=== PATIENT | female | born 1995 | race Caucasian/White ===

== ENCOUNTER 2019-11-01 14:54 | Emergency (ER) | payer OTHER, SELFPAY ==
[2019-11-01 15:03] VITALS: BP 111/73; PULSE 95; RESP 14; TEMP 37.9; O2SAT 98
--- NOTE | 2019-11-01 15:13 | ED.URI ---
HPI - URI/Sore Throat General Chief Complaint: Upper Respiratory Infection Stated Complaint: cough/fever/runny nose/congestion Time Seen by Provider: 11/01/19 15:13 Source: patient Mode of arrival: ambulatory Limitations: no limitations History of Present Illness HPI Narrative: Josh Muller is a 24 yo female with no PMH who started with fever last night- saw pcp this AM - strep negative, did not have flu swab to test pt. Pt's temp 100-101.2. 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 Related Data Allergies Allergy/AdvReac Type Severity Reaction Status Date / Time No Known Allergies Allergy Verified 11/01/19 15:10 Review of Systems Review of Systems: Narrative: CONSTITUTIONAL: Has fever, chills, sweats. EYES: Denies visual changes, redness, discharge. ENT: Denies rhinorrhea, has congestion, has sore throat, otalgia. CARDIOVASCULAR: Denies chest pain, palpitations, edema. RESPIRATORY: Denies dyspnea, wheezing, mild cough GASTROINTESTINAL: Denies abdominal pain, nausea, vomiting, diarrhea. GENITOURINARY: Denies dysuria, hematuria, abnormal discharge SKIN: Denies rash or itching. NEUROLOGIC: Denies numbness, or focal weakness. PSYCHIATRIC: Denies anxiety or depression. [facility] Family History Family History Other No active medical problems Social History Social History (Updated 11/01/19 @ 15:25 by Lori Pineda CNP) Smoking status: Never smoker Alcohol intake: current Comments At time of signature, I agree with nursing past medical, surgical, social and family history. There is no relevant family history pertinent to the presenting complaint. Exam Narrative: Exam Narrative: GENERAL: This is a well-nourished, well-developed patient, in mild distress. HEAD: normocephalic, atraumatic. EYES: Sclera clear/white. Vision is grossly intact. EARS: External ears normal, auditory canals clear and without drainage, TMs normal without perforation. Hearing grossly intact. NOSE: External nose normal with no nasal discharge, nares with redness, mild rhinorrhea. THROAT: Mucous membranes moist, posterior pharynx erythema NECK: Neck supple, tender without lymphadenopathy, CARDIOVASCULAR: Regular rate and rhythm without murmurs, gallops, or rubs. RESPIRATORY: Clear to auscultation. Breath sounds equal bilaterally. No wheezes, rales, or rhonchi. GASTROINTESTINAL: Abdomen soft, non-tender, SKIN: warm, intact with no suspicious lesions or rash, good texture and turgor. NEURO: awake, alert, and oriented to person, place and time. There were no obvious focal neurologic abnormalities. Steady gait EXTREMITIES: Normal range of motion. No edema. BACK: Nontender without deformity or crepitance. Course Course Emergency Course: flu negative strep negative Started on empiric tamiflu, discussed fever control, hydration, days off work. Pt was denied screening for [facility] as does not meet screening criteria.Pt should quarantine until fever free x 24 hours Vital Signs Vital signs: Vital Signs Temperature 100.2 F H 11/01/19 15:03 Pulse Rate 95 11/01/19 15:03 Respiratory Rate 14 11/01/19 15:03 Blood Pressure 111/73 11/01/19 15:03 Pulse Oximetry 98 11/01/19 15:03 Temperature 100.2 F H 11/01/19 15:03 Pulse Rate 95 11/01/19 15:03 Respiratory Rate 14 11/01/19 15:03 Blood Pressure 111/73 11/01/19 15:03 Pulse Oximetry 98 11/01/19 15:03 MDM - URI/Sore Throat Differential Diagnosis Differential diagnosis: Likely upper respiratory infection, sinusitis, influenza, pharyngitis and other Lab Data Labs: Influenza A Screen Negative Reference Range: Negative Influenza B Screen Negative Reference Range: Negative Strep Screen Presumptive Negative *(Reference Range: Negative)* Discharge Plan Discharge Clinical Impression: Pharyngitis Qualifiers: Pharyngitis/tonsillitis etiology: unspe
== END 2019-11-01 15:52 | disposition home or self-care (01) ==
PROVIDERS: Emergency Provider Nurse Practitioner
DX: J02.9 Acute pharyngitis, unspecified (principal); J06.9 Acute upper respiratory infection, unspecified
CPT/HCPCS: 87081; 87804; 87880; 99213; G0463

== ENCOUNTER 2020-08-11 14:46 | Emergency (ER) | payer OTHER, SELFPAY ==
[2020-08-11 15:00] VITALS: BP 105/60; PULSE 90; RESP 18; TEMP 36.8; O2SAT 98
--- NOTE | 2020-08-11 15:20 | ED.GENADULT ---
HPI - General Adult General Chief complaint: Urogenital-Female Stated complaint: Lower Back Pain Time Seen by Provider: 08/11/20 15:21 Source: patient Mode of arrival: ambulatory Limitations: no limitations History of Present Illness HPI narrative: 24-year-old female patient presents to the [facility] with complaints of low back pain that wraps around to the right hip and down the leg. Patient states that the pain hurts worse when first standing in the morning as well as when she is laying on her back or laying on her right side. Patient states she has tried taking some Tylenol for the pain that has not helped. Patient is currently Covid positive and has been on quarantine now for about a week. Patient denies any urinary symptoms such as urgency, frequency or pain with urination. Denies any fevers, body aches or chills. Related Data Allergies Allergy/AdvReac Type Severity Reaction Status Date / Time No Known Allergies Allergy Verified 08/11/20 15:23 Review of Systems Review of Systems: Narrative: CONSTITUTIONAL: Denies fever, chills, or sweats. EYES: Denies visual changes, redness, or discharge. ENT: Denies rhinorrhea, congestion, sore throat, or otalgia. CARDIOVASCULAR: Denies chest pain, palpitations, or edema. RESPIRATORY: Denies cough or dyspnea. GASTROINTESTINAL: Denies abdominal pain, nausea, vomiting, or diarrhea. GENITOURINARY: Denies dysuria or hematuria. SKIN: Denies rash or itching. MUSCULOSKELETAL: Positive low back pain, denies joint pain, or myalgia. NEUROLOGIC: Denies headache, numbness, or weakness. PSYCHIATRIC: Denies anxiety or depression. PMFSH Family History Family History Other No active medical problems Social History Social History Smoking status: Never smoker Alcohol intake: current Comments At the time of my signature I agree with nursing past medical history, surgical, social, and family history. There is no relevant family history pertinent to the presenting complaint. Exam Narrative: Exam Narrative: GENERAL: Well-appearing, well-nourished, and in no acute distress. HEAD: Normocephalic, atraumatic. EYES: PERRLA and EOMI. ENT: Nares clear, no rhinorrhea or epistaxis. Mucous membranes moist. NECK: Supple. No lymphadenopathy CHEST: Clear to auscultation. No respiratory distress. HEART: Regular rate and rhythm. No murmur heard. Normal peripheral pulses. ABDOMEN: Soft, nontender, nondistended, normal active bowel sounds. EXTREMITIES: Normal range of motion. No edema. BACK: Patient is able to ambulated without assistance. Pt is seated on the stretcher in no obvouis distress. No surface trauma noted. No muscle tenderness to Palpation. Patient does have tenderness to palpation of the middle of the right buttocks that radiates down around the hip down the leg. No obvious spasm or mass. No step-offs or deformity noted to the cervical, thoracic or lumbar spine to firm Palpation at the midline. No CVA tenderness to percussion. No saddle anesthesia. ROM: able to stand erect. Normal flexion, extension, Lateral bending and rotation without limitation or complaint of pain. SKIN: Warm, dry, no rash. NEURO: No focal deficits. Alert and oriented x3. Course Vital Signs Vital signs: Vital Signs Temperature 36.8 C 08/11/20 15:00 Pulse Rate 90 08/11/20 15:00 Respiratory Rate 18 08/11/20 15:00 Blood Pressure 105/60 08/11/20 15:00 Pulse Oximetry 98 08/11/20 15:00 Temperature 36.8 C 08/11/20 15:00 Pulse Rate 90 08/11/20 15:00 Respiratory Rate 18 08/11/20 15:00 Blood Pressure 105/60 08/11/20 15:00 Pulse Oximetry 98 08/11/20 15:00 Vital signs reviewed. Medical Decision Making Differential Diagnosis Differential Diagnosis: Differential diagnosis: Acute musculoskeletal injury or exacerbation, neurological emergency, acute coronary syndrome, kidney stones, epidura
== END 2020-08-11 15:30 | disposition home or self-care (01) ==
PROVIDERS: Emergency Provider Nurse Practitioner Family; PCP Emergency Medicine
DX: M54.41 Lumbago with sciatica, right side (principal)
CPT/HCPCS: 81003; 81025; 87086; 87088; 99213; G0463

== ENCOUNTER 2020-11-03 09:53 | Outpatient (CLI) | payer OTHER, SELFPAY ==
--- NOTE | ~2020-11-03 | US_ITS ---
EXAMINATION: US soft tissue head and neck EXAM DATE: 11/03/2020 10:16 INDICATION: Left posterior neck mass. Nodule. TECHNIQUE: Multiple grayscale and Doppler images of the neck soft tissue posterior to the ear area of concern were obtained (by a technologist who performed the scan) and subsequently reviewed. There i s no prior study for comparison. FINDINGS: There is a solid hypoechoic mass demonstrating vascularity measuring 1.0 x 0.9 x 0.7 cm. Imaging feat ures are nonspecific, but if lymph node it is more round than typical, and without expected fatty hil um, indicating it could be pathological. IMPRESSION: Nonspecific hypoechoic mass posterior to left ear. Could be benign or malignant. If ther e is evidence of cervical lymphadenopathy, recommended neck CT with contrast. Otherwise consider ultr asound-guided biopsy. Reviewed, dictated and finalized at location [facility]. IMPRESSION: Nonspecific hypoechoic mass posterior to left ear. Could be benign or malignant. If there is evidence of cervical lymphadenopathy, recommended ne ck CT with contrast. Otherwise consider ultrasound-guided biopsy.
== END 2020-11-03 09:54 | disposition home or self-care (01) ==
LOC: ANHIMG 09:58
PROVIDERS: PCP Emergency Medicine; Visit Provider Emergency Medicine
DX: R22.1 Localized swelling, mass and lump, neck (principal)
CPT/HCPCS: 76536

== ENCOUNTER → 2020-12-12 06:44 | Outpatient (CLI) | payer OTHER, SELFPAY ==
[2020-12-12 19:16] LABS: SARS-CoV-2 RNA PCR Negative
== END ==
PROVIDERS: PCP Emergency Medicine; Visit Provider Surgery
DX: Z01.812 Encounter for preprocedural laboratory examination (principal); Z20.822 Contact with and (suspected) exposure to COVID-19
CPT/HCPCS: C9803; U0003; U0005

== ENCOUNTER 2020-12-16 01:43 | Day surgery (SDC) | payer OTHER, SELFPAY ==
[2020-12-08 15:23] VITALS: BMI 32.1
--- NOTE | 2020-12-16 10:14 | WPDANESEPPF ---
Anes - Initial Pre Proc Eval Procedure: Operation Date: 12/16/20 13:30 Proposed Procedures p Excisional Biopsy Left Posterior Neck Mass - Elvia Bermudez MD Date/Time: 12/16/20 10:14 Surgeon: Elvia Bermudez MD Pre Op Diagnosis: posterior neck mass Patient Data Age: 25 Gender: F Height: 1.63 m Weight: 85 kg Allergies Allergy/AdvReac Type Severity Reaction Status Date / Time No Known Allergies Allergy Verified 12/08/20 15:22 Home Medications Medication Instructions Recorded Confirmed Type copper 380 square mm intrauterine 1 device INTRAUTERINE ONCE 12/07/20 12/08/20 History device nystatin 1 applic TOPICAL BID 12/08/20 12/08/20 History Patient hx anesthesia problems: none Family hx anesthesia problems: none PMFSH Surgical History Surgical History (Updated 12/15/20 @ 13:30 by Raudel Edgar DO) History of laparoscopic appendectomy History of tonsillectomy and adenoidectomy Hx laparoscopic cholecystectomy Family History Family History Father No problems noted. Mother MVA (motor vehicle accident) Grandparent Lung cancer Cervical cancer Other No active medical problems Social History Social History Smoking status: Never smoker Second hand tobacco smoke exposure: No Alcohol intake: current Alcohol use details: 2-3/MONTH Substance use: current Substance use type: marijuana Other substance usage details: SMOKE Last use: 12/07/20 Living arrangements: with family Additional occupation/education comments: [employer] Gender identity (if verbalized by the patient): Female Spiritual care concerns: No Anes - Eval Final PreProcedure Day of Procedure 12/16/20 10:14 Patient weight: obese Heart: regular rate and rhythm Lungs: clear to auscultation and normal air movement Airway: Mallampati scale class II Neurological: alert and oriented Last oral intake: >/= 8 hours ASA classification: II Emergent: no Anesthetic plan: proceed Anesthesia type and monitoring: general GIVS and standard monitoring Informed Consent: The patient's anesthetic plan and its attendant risks and benefits were discussed with the patient/family/POA. Questions were solicited and answers provided to the satisfaction of the patient/family/POA.
[2020-12-16] MEDS: LACTATED RINGERS 1,000 ML 30 ML IV CONT (12:00)
[2020-12-16 12:08] VITALS: BP 112/70; PULSE 69; RESP 18; TEMP 36.3; O2SAT 100
--- NOTE | 2020-12-16 13:31 | WPDHPUPDATE1 ---
History and Physical Update Update Date/Time: 12/16/20 13:31 History and Physical has been reviewed, including an updated exam of the patient. There are NO changes in the patient's condition. Risks, benefits, and alternatives have been discussed and questions answered. Patient agrees to proceed with procedure.
[2020-12-16] MEDS: ceFAZolin 2 GM/D5W 50 ML 2 GM/50 ML BAG IVPB (13:37)
[2020-12-16] MEDS: BUPIVACAINE/EPINEPHRINE 0.5% 30 ML VIAL INFILTRATE (14:02)
--- NOTE | 2020-12-16 14:35 | PM.PROC ---
Procedure Note - Detailed Date of procedure: 12/16/20 Pre-op diagnosis: posterior neck mass Post-op diagnosis: same Procedure performed: excisional biopsy left posterior neck mass Description of procedure: The patient was taken to the operating room placed in the lateral position. After adequate induction of mac anesthesia, the patient was prepped and draped normal sterile fashion. A time-out was then done to verify the patient's identity, as well as procedure being performed. I then localized the area in and around this mass located at the hairline of the left posterior neck. I then made an incision over the mass. Incision was taken down through the dermis into the subcutaneous tissue. The mass was noted to be in the subcutaneous tissue and posteriorly adherent to the underlying muscle. Using very careful dissection both sharply and bluntly I was able to excise this mass in full. 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 There was some other pieces that looked to be lipoma and these were removed as well. Once the cavity was completely excised and measured approximately 3 x 2 cm. I then copiously irrigated out the cavity and hemostasis was noted. I then closed the subcutaneous tissue with 3 0 Vicryl suture. The skin was closed with 4 O Monocryl subcuticular suture. Dermabond was then placed in the wound. The patient tolerated the procedure well and was alert and awake in the operating room postoperative. She will be transferred to the recovery room in stable condition. Anesthesia: MAC and local Surgeon: Elvia Bermudez MD Estimated blood loss (mL): 10 Drains: No Packing: No Pathology: yes Complications: No immediate complications Condition: stable Disposition: PACU Findings: Left posterior neck mass
[2020-12-16 14:37] VITALS: BP 108/61; PULSE 96; RESP 14; O2SAT 99
[2020-12-16 14:55] VITALS: BP 113/73; PULSE 85; RESP 14; O2SAT 99
[2020-12-16] MEDS: ONDANSETRON INJ 4 MG/2 ML VIAL IV PUSH (15:07)
[2020-12-16 15:25] VITALS: BP 118/66; PULSE 71; RESP 16
--- NOTE | 2020-12-16 15:32 | SUR.PHASEII ---
1532- Notified Dr. Edgar patient complaining of headache and requesting orders for Tylenol at this time. Obtained orders from Dr. Edgar for 1,000MG PO Tylenol once.
[2020-12-16] MEDS: ACETAMINOPHEN 500 MG TABLET 1000 MG PO (15:37)
[2020-12-16 15:45] VITALS: BP 120/59; PULSE 84; RESP 16
[2020-12-16 15:55] VITALS: BP 116/56; PULSE 76; RESP 16
== END 2020-12-16 16:03 | disposition home or self-care (01) ==
PROVIDERS: PCP Emergency Medicine; Visit Provider Surgery
PROC: (CPT 21552; principal; 2020-12-16 13:30)
DX: R22.1 Localized swelling, mass and lump, neck (principal); F12.90 Cannabis use, unspecified, uncomplicated; E66.9 Obesity, unspecified; Z68.31 Body mass index [BMI] 31.0-31.9, adult
CPT/HCPCS: 21552; 88304; A9270; J0690; J2250; J2405; J2704; J3010; J7120

== ENCOUNTER 2022-07-06 08:32 | Emergency (ER) | payer OTHER, SELFPAY ==
[2022-07-06 08:38] VITALS: BP 150/70; PULSE 117; RESP 18; TEMP 36.9; O2SAT 98
--- NOTE | 2022-07-06 09:43 | ED.URI ---
HPI - URI/Sore Throat General Chief Complaint: Upper Respiratory Infection Stated Complaint: Cough/Fever Time Seen by Provider: 07/06/22 09:14 Source: patient, RN notes reviewed and old records reviewed Mode of arrival: ambulatory Limitations: no limitations History of Present Illness HPI Narrative: 36-year-old female who presents to [facility] with complaints of bilateral ear pain cough fevers headache for the past 3-4 days mother states she has been taking Tylenol and ibuprofen and also did take some DayQuil for her symptoms. Mother states she did take home COVID test which was negative, has not been vaccinated for COVID or has had flu shot. Mother reports fever 101.8F yesterday MD elicited complaint: fever, cough, rhinorrhea, nasal congestion and other (Ear pain) Pertinent past history: other (Tonsillectomy) Onset (ago): day(s) (4) Treatments prior to arrival: acetaminophen, ibuprofen and other (DayQuil) Related Data Allergies Allergy/AdvReac Type Severity Reaction Status Date / Time No Known Allergies Allergy Verified 12/30/20 09:07 Review of Systems Review of Systems: CONSTITUTIONAL: Reports malaise, chills, sweats, or fever. EYES: Denies visual changes, redness, or discharge. ENT: Reports rhinorrhea, congestion, sinus pain, otalgia no sore throat. CARDIOVASCULAR: Denies chest pain, palpitations, or edema. RESPIRATORY: Reports cough.? Denies dyspnea. GASTROINTESTINAL: Denies abdominal pain, nausea, vomiting, diarrhea SKIN: Denies rash or itching. MUSCULOSKELETAL: Denies myalgia. NEUROLOGIC: Reports headache. All systems reviewed & are unremarkable except as noted in HPI and below PMFSH Surgical History Surgical History H/O excision of mass 12/16/20 excisional biopsy left posterior neck mass History of laparoscopic appendectomy History of tonsillectomy and adenoidectomy Hx laparoscopic cholecystectomy Family History Family History Father No problems noted. Mother MVA (motor vehicle accident) Grandparent Lung cancer Cervical cancer Other No active medical problems Social History Social History (Updated 07/06/22 @ 09:47 by Charley Macario NP) Smoking status: Never smoker Second hand tobacco smoke exposure: No Alcohol intake: current Alcohol use details: 2-3/MONTH Substance use: former Substance use type: marijuana Other substance usage details: SMOKE Last use: 12/07/20 Living arrangements: with family Additional occupation/education comments: [employer] Gender identity (if verbalized by the patient): Female Sexual Orientation (if Verbalized by the Patient): Straight or Heterosexual Spiritual care concerns: No Comments At time of signature, agree with nursing past medical, surgical, social and family history. There is no relevant family history pertinent to the presenting complaint Exam Narrative: GENERAL: Well-appearing, well-nourished, and in no acute distress. HEAD: Normocephalic EYES: PERRLA, conjunctivae clear ENT: Nares clear, turbinates edematous and erythematous, clear discharge. Mucous membranes moist. TM pearly freeman with dull light reflex bilaterally; no tragal tenderness. Oropharynx erythematous without lesions. Tonsils absent and without exudate, no drooling, no hoarseness, no trismus, uvula midline. Postnasal drainage NECK: Supple. No lymphadenopathy CHEST: Clear to auscultation, breath sounds equal. No wheezing, rhonchi, rales, or stridor. No respiratory distress, speaks in full sentences. Cough SaO2 98% on room air HEART: Regular rate and rhythm. No murmur heard. SKIN: Warm, dry, no rash. NEURO: Alert and oriented x3. PSYCH: Normal mood and affect Course Course Emergency Course: Patient is aware of diagnosis, understands and agrees to treatment plan.? Anticipatory guidance given.? Patient agrees to
== END 2022-07-06 10:07 | disposition home or self-care (01) ==
PROVIDERS: Emergency Provider Registered Nurse
DX: J06.9 Acute upper respiratory infection, unspecified (principal)
CPT/HCPCS: 99213; G0463

== ENCOUNTER 2023-07-27 08:11 | Outpatient (CLI) | payer OTHER, SELFPAY ==
--- NOTE | ~2023-07-27 | US_ITS ---
Limited Abdominal Sonogram: Real-time sonographic imaging of the right upper quadrant was performed. Clinical History: Abnormal liver enzymes Findings: The liver appears mildly heterogeneous, with no evidence of mass lesion or bile duct dilat ation. Main portal vein demonstrates normal direction of flow. The gallbladder is minimally distended , without definite gallstone or gallbladder wall thickening. The common bile duct measures 2 mm. The visualized pancreas, aorta, and IVC are unremarkable. Impression: Heterogeneous hepatic echotexture could reflect chronic liver disease or diffuse fatty infiltration. Correlate clinically. Reviewed, dictated and finalized at [facility]. US HAND Impression: Heterogeneous hepatic echotexture could reflect chronic liver disease or diffus e fatty infiltration. Correlate clinically.
== END 2023-07-27 08:12 | disposition home or self-care (01) ==
PROVIDERS: PCP Emergency Medicine; Visit Provider Emergency Medicine
DX: R74.01 Elevation of levels of liver transaminase levels (principal)
CPT/HCPCS: 76705

== ENCOUNTER 2024-06-06 09:41 | Emergency (ER) | payer OTHER, SELFPAY ==
[2024-06-06 10:15] LABS: EDINFLUASCREEN Negative (Negative); EDINFLUBSCREEN Negative (Negative)
--- NOTE | 2024-06-06 10:15 | ED.GENADULT ---
HPI - General Adult General Chief complaint: Upper Respiratory Infection Stated complaint: Sinus infection Time Seen by Provider: 06/06/24 10:15 Source: patient, RN notes reviewed and old records reviewed Mode of arrival: ambulatory Limitations: no limitations History of Present Illness HPI narrative: 28 year female to [facility] with complaint of nausea and vomiting Monday through Monday morning. Patient reports she was seen at [facility] on Monday for vomiting. Patient was told that her symptoms were due to her . Patient states she was not tested for COVID, influenza at [facility]. Patient states she was giving IV fluids as well as Zofran and vitamin B6 in the ED. Patient reports she was given a prescription for Zofran. Patient reports she has not vomited since yesterday morning. Patient reports bilateral ear pressure and fullness worse on left, postnasal drainage, nasal congestion that all started yesterday. Patient states that she called her OBGYN this morning and is awaiting a return call. Patient resting comfortably in exam room in no acute distress. Patient able to tolerate fluids by mouth. Related Data Allergies Allergy/AdvReac Type Severity Reaction Status Date / Time No Known Allergies Allergy Verified 12/30/20 09:07 Review of Systems Review of Systems: All systems reviewed & are unremarkable except as noted in HPI and below Constitutional: Constitutional: Reports no additional constitutional complaints Eyes: Eyes: Reports no additional eye complaints ENT: Reports as per HPI, Reports otalgia, Reports nasal congestion and Reports sinus pressure Cardiovascular: Cardiovascular: Reports no additional cardiovascular complaints, Denies chest pain and Denies dyspnea Respiratory: Respiratory: Reports no additional respiratory complaints, Denies cough and Denies dyspnea Gastrointestinal: Gastrointestinal: Reports as per HPI, Denies abdominal pain, Denies diarrhea, Reports nausea and Reports vomiting Genitourinary: Genitourinary: Reports no additional female genitourinary complaints Musculoskeletal: Musculoskeletal: Reports no additional musculoskeletal complaints Neurologic: Reports system reviewed and no additional complaints, except as documented Psychiatric: Psychiatric: Reports no additional psychiatric complaints [facility] Surgical History Surgical History H/O excision of mass 12/16/20 excisional biopsy left posterior neck mass History of laparoscopic appendectomy History of tonsillectomy and adenoidectomy Hx laparoscopic cholecystectomy Family History Family History Father No problems noted. Mother MVA (motor vehicle accident) Grandparent Lung cancer Cervical cancer Other No active medical problems Social History Social History Smoking status: Never smoker Second hand tobacco smoke exposure: No Alcohol intake: current Alcohol use details: 2-3/MONTH Substance use: former Substance use type: marijuana Other substance usage details: SMOKE Last use: 12/07/20 Living arrangements: with family Occupation/Education: occupation Additional occupation/education comments: [employer] Gender identity (if verbalized by the patient): Female Sexual Orientation (if Verbalized by the Patient): Straight or Heterosexual Spiritual care concerns: No Comments At the time of my signature, I reviewed and agree with the nursing past medical, surgical, social, and family history. There is no relevant family history pertinent to the patient complaint. Exam Const: General: cooperative, healthy appearing, comfortable, no acute distress, alert and well nourished Nutritional Appearance: well nourished Orientation/consciousness: patient oriented x3 Limitations: no limitations HENMT:
[2024-06-06 10:16] LABS: EDCOVIDSCREEN Positive (Negative)
== END 2024-06-06 10:42 | disposition home or self-care (01) ==
PROVIDERS: Emergency Provider Nurse Practitioner Family; PCP Emergency Medicine
DX: O26.899 Other specified pregnancy related conditions, unspecified trimester (principal); U07.1 COVID-19; H66.93 Otitis media, unspecified, bilateral; Z3A.00 Weeks of gestation of pregnancy not specified
CPT/HCPCS: 87426; 87804; 99213; G0463